=== PATIENT | female | born 1985 | race African-American/Black ===

== ENCOUNTER 2017-10-16 20:32 | Emergency (ER) | payer MEDICAID, OTHER ==
[~2017-10-16] VITALS: Ht 157.5 cm; Wt 99.2 kg
[~2017-10-16 20:32] MED LIST: ALBUS PO; GLUCTAB PO; LANTUS2P SC; METR0.7514 PV; METR1GEL2 EX; NAPR500 PO
[2017-10-16 20:43] VITALS: BP 161/83; PULSE 86; RESP 18; TEMP 98.8; O2SAT 98
[2017-10-16] MEDS ORDERED: VENTAER INH (21:00)
[2017-10-16] MEDS ORDERED: LANTUS2P SQ (21:00)
[2017-10-16] MEDS ORDERED: TRAM50 PO (22:15)
[2017-10-16] MEDS ORDERED: CYCL10TA PO (22:15)
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
[2017-10-16] MEDS ORDERED: CYCLOBENZAPRINE HCL 10 MG TAB PO ONE (22:30)
[2017-10-16] MEDS ORDERED: traMADol HCL 50 MG TAB PO ONE (22:30)
== END 2017-10-16 22:54 | disposition home or self-care (01) ==
LOC: PHEFT 20:32
DX: S39.012A Strain of muscle, fascia and tendon of lower back, initial encounter (principal); V43.52XA Car driver injured in collision with other type car in traffic accident, initial encounter
CPT/HCPCS: 99284

== ENCOUNTER 2018-03-10 08:17 | Emergency (ER) | payer SELFPAY ==
[~2018-03-10] VITALS: Ht 157.5 cm; Wt 95.5 kg
[~2018-03-10 08:17] MED LIST changes: -ALBUS PO; +CYCL10TA PO; -GLUCTAB PO; -LANTUS2P SC; +LANTUS2P SQ; -METR0.7514 PV; -METR1GEL2 EX; -NAPR500 PO; +TRAM50 PO; +VENTAER INH
[2018-03-10 08:21] VITALS: BP 153/99; PULSE 103; RESP 18; TEMP 98.1; O2SAT 100
[2018-03-10] MEDS ORDERED: METF500T PO (08:38)
--- NOTE | 2018-03-10 09:38 | PD ---
HPI Chief Complaint: Related Problem Time Seen by Provider: 09:23 Travel History International Travel<30 days: No Contact w/Intl Traveler<30days: No Traveled to known affect area: No History of Present Illness HPI 33-year-old female complains of abdominal cramping and vaginal bleeding. Patient states the symptoms started this morning. Patient states that her last menstruation period was at end of December. Patient started having low abdominal cramping with vaginal bleeding this morning. Patient states that she took a home test last month that was positive. Patient denies any headache. Patient denies any chest pain or shortness of breath. Patient denies nausea vomiting diarrhea. Patient denies any dysuria frequency. Patient denies any fever chills. PFSH Past Medical History Asthma: Yes Depression: Yes Diabetes: Yes Patient Takes Glucophage: Yes Diminished Hearing: No Immunizations Current: Yes Migraines: Yes Influenza Vaccination: Yes ?: LMP: 01/23/18 : 1 Para: 0 Past Surgical History Tonsillectomy: Yes Social History Alcohol Use: No Tobacco Use: No Substance Use: No Allergies-Medications (Allergen,Severity, Reaction): Coded Allergies: No Known Allergies (Unverified , 07/16/16) Reported Meds & Prescriptions Reported Meds & Active Scripts Active Reported Metformin (Metformin HCl) 500 Mg Tab 500 Mg PO BIDPC Ventolin Hfa 18 GM Inh (Albuterol Sulfate) 90 Mcg/Act Aer 1 Puff INH Q4H PRN Lantus Inj (Insulin Glargine) 1,000 Unit/10 Ml Vial 55 Units SQ HS Review of Systems General / Constitutional: No: Fever Eyes: No: Visual changes HENT: No: Headaches Cardiovascular: No: Chest Pain or Discomfort Respiratory: No: Shortness of Breath Gastrointestinal: Positive: Abdominal Pain Genitourinary: Positive: Vaginal Bleeding, No: Dysuria Musculoskeletal: No: Pain Skin: No Rash Neurologic: No: Weakness Psychiatric: No: Depression Endocrine: No: Polydipsia Hematologic/Lymphatic: No: Easy Bruising Physical Exam Narrative GENERAL: Well-nourished, well-developed patient. SKIN: Focused skin assessment warm/dry. HEAD: Normocephalic. EYES: No scleral icterus. No injection or drainage. NECK: Supple, trachea midline. No JVD or lymphadenopathy. CARDIOVASCULAR: Regular rate and rhythm without murmurs, gallops, or rubs. RESPIRATORY: Breath sounds equal bilaterally. No accessory muscle use. GASTROINTESTINAL: Abdomen soft, nondistended. Mild tenderness on palpation epigastric and lower abdomen. No rebound tenderness. No mass. MUSCULOSKELETAL: No cyanosis, or edema. BACK: Nontender without obvious deformity. No CVA tenderness. Neurologic exam normal. Data Data Last Documented VS Vital Signs Date Time Temp Pulse Resp B/P (MAP) Pulse Ox O2 Delivery O2 Flow Rate FiO2 03/10/18 08:32 97 18 03/10/18 08:21 98.1 153/99 (117) 100 Orders Orders Ed Urine Pregnancytest Poc (03/10/18 09:02) Ed Discharge Order (03/10/18 09:30) MDM Medical Decision Making Medical Screen Exam Complete: Yes Emergency Medical Condition: Yes Differential Diagnosis Differential diagnosis including dysmenorrhea, menorrhagia, threatened AB, ectopic . Narrative Course 33-year-old female complains of abdominal cramping and vaginal bleeding. Urine test negative 2 in the ED. Diagnosis Primary Impression: Dysmenorrhea Patient Instructions: General Instructions Additional Instructions: [id number] Advil as needed for pain. 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 Med/Other Pt SpecificInfo: No Meds Exist/No RX given Disposition: 01 DISCHARGE HOME Condition: Stable Aquiles Draper MD Mar 10, 2018 09:38
== END 2018-03-10 09:55 | disposition home or self-care (01) ==
LOC: NEPC 08:17
DX: N94.6 Dysmenorrhea, unspecified (principal); J45.909 Unspecified asthma, uncomplicated; F32.9 Major depressive disorder, single episode, unspecified; E11.9 Type 2 diabetes mellitus without complications; Z79.4 Long term (current) use of insulin; Z79.899 Other long term (current) drug therapy
CPT/HCPCS: 84703; 99281